=== PATIENT | male | born 1945 | race Caucasian/White ===

== ENCOUNTER 2017-05-02 07:08 | Inpatient (IN) | payer OTHER ==
[~2017-05-02] VITALS: Ht 182.9 cm; Wt 95.5 kg
[~2017-05-02 07:08] MED LIST: ALBU2.5V NEB; HYDR-882 PO; INSU100I18 SQ-INSULIN; INSU100I28 SQ-INSULIN; INSU100V5 SQ-INSULIN; IPRA3AMP NPPB; LOSA100T6 PO; NPH,100V SQ-INSULIN; PRED-402 PO; PRED20TA PO; PREG150C PO; RISP1TAB45 PO; TRAZ100T15 PO; TRAZ150T62 PO
[2017-05-02] MEDS ORDERED: methylPREDNISolone SOD SUCC 125 MG/2 ML ONE (07:58)
[2017-05-02] MEDS ORDERED: ALBUTEROL/IPRATROPIUM 2.5MG/0.5MG, 3 ML NPPB ONE (08:00)
[2017-05-02] MEDS ORDERED: SODIUM CHLORIDE FLUSH 10ML SYR IVF ONE (08:00)
[2017-05-02] MEDS ORDERED: methylPREDNISolone SOD SUCC 125 MG/2 ML IVP ONE (08:00)
[2017-05-02 08:20] LABS: BASOPHILS # (AUTO) 0.02 x10^3/uL (0-0.1); BASOPHILS % (AUTO) 0 % (0-1); EOSINOPHILS % (AUTO) 0 % (1-7); LYMPHOCYTES # (AUTO) 1.02 x10^3/uL (1-3.4); LYMPHOCYTES % (AUTO) 9 % (22-44); MD NO; MEAN CORPUSCULAR HEMOGLOBIN 28.3 pg (27.5-34.5); MEAN CORPUSCULAR HGB CONC 32.6 g/dL (33.2-36.2); MEAN PLATELET VOLUME 8.1 fL (7.4-10.4); MONOCYTES # (AUTO) 1.06 x10^3/uL (0.2-0.8); MONOCYTES % (AUTO) 9 % (2-9); NEUTROPHILS # (AUTO) 9.27 x10^3/uL (1.8-6.8); NEUTROPHILS % (AUTO) 82 % (42-75); PLATELET COUNT 310 x10^3/uL (130-400); RED CELL DISTRIBUTION WIDTH 14.2 % (9.4-14.8)
[2017-05-02 08:32] LABS: ALBUMIN 2.6 g/dL (3.4-5.0); ANION GAP 7 mmol/L (5-15); CALCIUM 8.9 mg/dL (8.5-10.1); CHLORIDE 100 mmol/L (98-107)
[2017-05-02 08:35] LABS: TROPONIN I < 0.015 ng/mL (0.000-0.045)
[2017-05-02] MEDS ORDERED: CEFTRIAXONE PMX 1GM/50ML 50 ML IVPB ONE (09:30)
[2017-05-02] MEDS ORDERED: CEFTRIAXONE PMX 1GM/50ML 50 ML ONE (10:24)
[2017-05-02] MEDS ORDERED: ALBUTEROL SULFATE 2.5 MG/3 ML ONE (11:17)
[2017-05-02] MEDS: SODIUM CHLORIDE 0.9% 1,000 ML IV SCH ×2 (11:28→22:48)
[2017-05-02] MEDS ORDERED: LEVOFLOXACIN/PMX 500MG/100ML 100 ML ONE (11:30)
[2017-05-02] MEDS ORDERED: ACETAMINOPHEN 325 MG TABLET PO PRN (11:30)
[2017-05-02] MEDS ORDERED: hydrALAzine 20 MG/ML, 1ML IVPush PRN (11:30)
[2017-05-02] MEDS ORDERED: HYDROcodone/APAP 5/325 TABLET PO PRN (11:30)
[2017-05-02] MEDS ORDERED: morphine SULFATE 10 MG/ML, 1ML IVPush PRN (11:30)
[2017-05-02] MEDS: LOSARTAN 50MG TABLET PO SCH (11:30)
[2017-05-02] MEDS ORDERED: TRAZODONE 100MG TABLET PO PRN (11:30)
[2017-05-02] MEDS ORDERED: ONDANSETRON 2MG/ML, 2ML IVPush PRN (11:30)
[2017-05-02] MEDS: LEVOFLOXACIN/PMX 500MG/100ML 100 ML IV SCH (11:36)
[2017-05-02] MEDS ORDERED: LOSARTAN MC SCH (13:00)
[2017-05-02 13:41] VITALS: BP 136/85
[2017-05-02] MEDS: ENOXAPARIN 40 MG/0.4 ML SQ SCH (14:18)
[2017-05-02] MEDS: INSULIN ASPART 100 UNITS/ML, PEN SQ-INSULIN SCH ×3 (14:18→20:30)
[2017-05-02] MEDS: RISPERIDONE 1 MG TABLET PO SCH ×2 (14:18→20:29)
[2017-05-02] MEDS: LACTOBACILLUS CHEW TABLET PO SCH ×3 (14:18→20:29)
[2017-05-02] MEDS ORDERED: ALBUTEROL/IPRATROPIUM 2.5MG/0.5MG, 3 ML ONE (16:14)
[2017-05-02] MEDS: ALBUTEROL/IPRATROPIUM 2.5MG/0.5MG, 3 ML NPPB SCH (16:15)
[2017-05-02 17:21] VITALS: BP 151/140
[2017-05-02] MEDS: methylPREDNISolone SOD SUCC 125 MG/2 ML IVPush SCH (17:36)
[2017-05-02 18:51] VITALS: BP 119/78
[2017-05-02 19:18] VITALS: BP 136/85
[2017-05-02] MEDS: INSULIN DETEMIR 100 UNITS/ML, PEN SQ-INSULIN SCH (20:29)
[2017-05-02] MEDS ORDERED: TRAZODONE 50MG TABLET PO PRN (21:00)
[2017-05-03] MEDS: methylPREDNISolone SOD SUCC 125 MG/2 ML IVPush SCH ×4 (00:21→19:33)
[2017-05-03 02:53] VITALS: BP 120/79
[2017-05-03 05:36] LABS: ALBUMIN 2.2 g/dL (3.4-5.0); ANION GAP 6 mmol/L (5-15); CALCIUM 8.3 mg/dL (8.5-10.1); CHLORIDE 105 mmol/L (98-107)
[2017-05-03 05:40] LABS: ALANINE AMINOTRANSFERASE 16 U/L (12-78); ALKALINE PHOSPHATASE 103 U/L (45-117); BILIRUBIN,TOTAL 0.2 mg/dL (0.2-1.0); CREATININE 0.98 mg/dL (0.7-1.3); TOTAL PROTEIN 6.8 g/dL (6.4-8.2)
[2017-05-03 07:50] VITALS: BP 147/92
[2017-05-03] MEDS: ALBUTEROL/IPRATROPIUM 2.5MG/0.5MG, 3 ML NPPB SCH ×4 (08:00→21:52)
[2017-05-03] MEDS: LACTOBACILLUS CHEW TABLET PO SCH ×3 (08:38→19:55)
[2017-05-03] MEDS: LOSARTAN 50MG TABLET PO SCH (08:38)
[2017-05-03] MEDS: RISPERIDONE 1 MG TABLET PO SCH ×2 (08:39→19:55)
[2017-05-03] MEDS: SODIUM CHLORIDE 0.9% 1,000 ML IV SCH ×2 (08:41→19:34)
[2017-05-03] MEDS: INSULIN ASPART 100 UNITS/ML, PEN SQ-INSULIN SCH ×4 (08:49→19:54)
[2017-05-03 12:30] VITALS: BP 128/77
[2017-05-03] MEDS: ENOXAPARIN 40 MG/0.4 ML SQ SCH (12:54)
[2017-05-03] MEDS: LEVOFLOXACIN/PMX 500MG/100ML 100 ML IV SCH (12:54)
[2017-05-03 18:44] VITALS: BP 127/75
[2017-05-03] MEDS: INSULIN DETEMIR 100 UNITS/ML, PEN SQ-INSULIN SCH (19:55)
[2017-05-04] MEDS: methylPREDNISolone SOD SUCC 125 MG/2 ML IVPush SCH (02:23)
[2017-05-04 04:00] VITALS: BP 145/86
[2017-05-04] MEDS: SODIUM CHLORIDE 0.9% 1,000 ML IV SCH ×2 (05:48→16:00)
[2017-05-04] MEDS: ALBUTEROL/IPRATROPIUM 2.5MG/0.5MG, 3 ML NPPB SCH ×4 (07:00→20:00)
[2017-05-04 08:15] VITALS: BP 140/87
[2017-05-04] MEDS: INSULIN DETEMIR 100 UNITS/ML, PEN SQ-INSULIN SCH ×2 (09:07→21:25)
[2017-05-04] MEDS: INSULIN ASPART 100 UNITS/ML, PEN SQ-INSULIN SCH ×4 (09:07→21:25)
[2017-05-04] MEDS: LACTOBACILLUS CHEW TABLET PO SCH ×3 (09:08→21:24)
[2017-05-04] MEDS: methylPREDNISolone SOD SUCC 40 MG/ML IVPush SCH ×3 (09:08→21:17)
[2017-05-04] MEDS: LOSARTAN 50MG TABLET PO SCH (09:09)
[2017-05-04] MEDS: RISPERIDONE 1 MG TABLET PO SCH ×2 (09:09→21:25)
[2017-05-04] MEDS: LEVOFLOXACIN/PMX 500MG/100ML 100 ML IV SCH (12:17)
[2017-05-04] MEDS: ENOXAPARIN 40 MG/0.4 ML SQ SCH (13:00)
[2017-05-04 13:30] VITALS: BP 147/86
[2017-05-04 14:53] VITALS: BP 172/82
[2017-05-04 14:55] VITALS: BP 150/87
[2017-05-04 19:33] VITALS: BP 144/80
[2017-05-05 01:39] VITALS: BP 148/92
[2017-05-05] MEDS: methylPREDNISolone SOD SUCC 40 MG/ML IVPush SCH ×4 (02:26→20:44)
[2017-05-05] MEDS: SODIUM CHLORIDE 0.9% 1,000 ML IV SCH ×3 (02:30→22:53)
[2017-05-05] MEDS: ALBUTEROL/IPRATROPIUM 2.5MG/0.5MG, 3 ML NPPB SCH ×4 (07:00→19:03)
[2017-05-05 08:44] VITALS: BP 154/101
[2017-05-05] MEDS: LOSARTAN 50MG TABLET PO SCH (09:04)
[2017-05-05] MEDS: LACTOBACILLUS CHEW TABLET PO SCH ×3 (09:04→20:45)
[2017-05-05] MEDS: INSULIN ASPART 100 UNITS/ML, PEN SQ-INSULIN SCH ×4 (09:04→20:45)
[2017-05-05] MEDS: RISPERIDONE 1 MG TABLET PO SCH ×2 (09:05→20:45)
[2017-05-05] MEDS: INSULIN DETEMIR 100 UNITS/ML, PEN SQ-INSULIN SCH ×2 (09:05→20:46)
[2017-05-05] MEDS: ENOXAPARIN 40 MG/0.4 ML SQ SCH (12:16)
[2017-05-05] MEDS: FLUTICASONE/VILANTEROL 200-25MCG/INH INH SCH (12:16)
[2017-05-05] MEDS: LEVOFLOXACIN/PMX 500MG/100ML 100 ML IV SCH (13:26)
[2017-05-05 14:39] VITALS: BP 137/88
[2017-05-05 20:08] VITALS: BP_SYST 171; BP_SYST 184; BP_DIAS 103; BP_DIAS 112
[2017-05-05] MEDS: GUAIFENESIN ER 600 MG TABLET PO SCH (20:44)
[2017-05-05 20:58] VITALS: BP 160/87
[2017-05-06 01:53] VITALS: BP 158/84
[2017-05-06] MEDS: methylPREDNISolone SOD SUCC 40 MG/ML IVPush SCH ×4 (03:08→20:33)
[2017-05-06] MEDS: INSULIN ASPART 100 UNITS/ML, PEN SQ-INSULIN SCH ×4 (07:00→20:34)
[2017-05-06] MEDS: ALBUTEROL/IPRATROPIUM 2.5MG/0.5MG, 3 ML NPPB SCH ×4 (08:12→19:09)
[2017-05-06 09:23] VITALS: BP 151/90
[2017-05-06] MEDS: FLUTICASONE/VILANTEROL 200-25MCG/INH INH SCH (09:30)
[2017-05-06] MEDS: GUAIFENESIN ER 600 MG TABLET PO SCH ×2 (09:31→20:35)
[2017-05-06] MEDS: RISPERIDONE 1 MG TABLET PO SCH ×2 (09:31→20:34)
[2017-05-06] MEDS: SODIUM CHLORIDE 0.9% 1,000 ML IV SCH (09:31)
[2017-05-06] MEDS: LACTOBACILLUS CHEW TABLET PO SCH ×3 (09:31→20:35)
[2017-05-06] MEDS: INSULIN DETEMIR 100 UNITS/ML, PEN SQ-INSULIN SCH ×2 (09:32→20:34)
[2017-05-06] MEDS: LOSARTAN 50MG TABLET PO SCH (09:32)
[2017-05-06] MEDS: LEVOFLOXACIN/PMX 500MG/100ML 100 ML IV SCH (11:45)
[2017-05-06 14:18] VITALS: BP 158/83
[2017-05-06] MEDS: ENOXAPARIN 40 MG/0.4 ML SQ SCH (15:04)
[2017-05-06] MEDS ORDERED: OMNIPAQUE 350 MG/ML, 100ML BOTTLE ONE (15:45)
[2017-05-06 19:52] VITALS: BP 161/82
[2017-05-07 02:13] VITALS: BP 176/99
[2017-05-07] MEDS: methylPREDNISolone SOD SUCC 40 MG/ML IVPush SCH ×2 (02:21→09:57)
[2017-05-07 04:28] VITALS: BP 152/87
[2017-05-07 05:59] LABS: CREATININE 0.63 mg/dL (0.7-1.3)
[2017-05-07] MEDS: ALBUTEROL/IPRATROPIUM 2.5MG/0.5MG, 3 ML NPPB SCH ×3 (07:00→14:31)
[2017-05-07] MEDS: INSULIN ASPART 100 UNITS/ML, PEN SQ-INSULIN SCH ×2 (07:00→12:03)
[2017-05-07 07:07] VITALS: BP 168/93
[2017-05-07] MEDS ORDERED: DILTIAZEM 120 MG CAP.ER.24H PO SCH (09:00)
[2017-05-07] MEDS: GUAIFENESIN ER 600 MG TABLET PO SCH (09:57)
[2017-05-07] MEDS: LACTOBACILLUS CHEW TABLET PO SCH (09:57)
[2017-05-07] MEDS: LOSARTAN 50MG TABLET PO SCH (09:58)
[2017-05-07] MEDS: RISPERIDONE 1 MG TABLET PO SCH (10:07)
[2017-05-07] MEDS: INSULIN DETEMIR 100 UNITS/ML, PEN SQ-INSULIN SCH (10:07)
[2017-05-07] MEDS: FLUTICASONE/VILANTEROL 200-25MCG/INH INH SCH (10:08)
[2017-05-07] MEDS ORDERED: BISACODYL 10 MG SUPP PR PRN (11:30)
[2017-05-07] MEDS ORDERED: POLYETHYLENE GLYCOL 17 GM PACKET PO ONE (11:30)
[2017-05-07] MEDS: LEVOFLOXACIN/PMX 500MG/100ML 100 ML IV SCH (12:02)
[2017-05-07 13:43] VITALS: BP 136/69
[2017-05-07] MEDS ORDERED: GUAI600T31 PO (14:12)
[2017-05-07] MEDS ORDERED: LEVO500T47 PO (14:12)
[2017-05-07] MEDS ORDERED: FLUT1BLS INH (14:12)
[2017-05-07] MEDS ORDERED: PRED10TA PO (14:12)
[2017-05-07] MEDS ORDERED: ACID1TAB7 PO (14:12)
[2017-05-07] MEDS ORDERED: DILT120C9 PO (14:12)
== END 2017-05-07 17:04 | disposition home or self-care (01) | DRG 871 ==
LOC: ED 08:41 → EDIP 09:36 → 3NE 12:27
PROVIDERS: ADMIT Hospitalist; ATTEND Internal Medicine
DX: A41.9 Sepsis, unspecified organism (principal); E43 Unspecified severe protein-calorie malnutrition; J96.21 Acute and chronic respiratory failure with hypoxia; I11.0 Hypertensive heart disease with heart failure; J18.9 Pneumonia, unspecified organism; E11.9 Type 2 diabetes mellitus without complications; Z99.81 Dependence on supplemental oxygen; I50.9 Heart failure, unspecified; J44.0 Chronic obstructive pulmonary disease with (acute) lower respiratory infection; J44.1 Chronic obstructive pulmonary disease with (acute) exacerbation; H91.90 Unspecified hearing loss, unspecified ear; Z87.891 Personal history of nicotine dependence; Z90.49 Acquired absence of other specified parts of digestive tract; Z68.28 Body mass index [BMI] 28.0-28.9, adult; Z79.899 Other long term (current) drug therapy
CPT/HCPCS: 36415; 71045; 71275; 80048; 80053; 82040; 82565; 82962; 83036; 83605; 83735; 83880; 84100; 84145; 84443; 84484; 85025; 87040; 87070; 87205; 93005; 94640; 96374; J0696; J1650; J1815; J1956; J7620; Q9967; J0360; J2920; J2930; J7030